=== PATIENT | male | born 1995 | race Caucasian/White ===

== ENCOUNTER 2021-07-24 07:51 | Emergency (ER) | payer SELFPAY ==
[~2021-07-24] VITALS: Ht 170.2 cm; Wt 68.1 kg
[2021-07-24 08:30] VITALS: BP 121/66
[2021-07-24] MEDS ORDERED: PENI500T PO (08:37)
--- NOTE | 2021-07-24 08:37 | PHYS DOC ---
General Adult EDM: Chief Complaint: SORE THROAT HPI: HPI: 26-year-old male presents with sore throat. He has had a sore throat for 2 days but is much worse today than yesterday. He also has had a fever of 102. He is concerned about having strep throat. He is not vaccinated against COVID-19 but he got the virus within the last 6 months and recovered. He has no other complaints this time. Review of Systems: Review of Systems: Constitutional: Fever Eyes: Denies change in visual acuity HENT: sore throat Respiratory: Denies cough or shortness of breath Cardiovascular: Denies chest pain or edema GI: Denies abdominal pain, nausea, vomiting, bloody stools or diarrhea : Denies dysuria Musculoskeletal: Denies back pain or joint pain Integument: Denies rash Neurologic: Denies headache, focal weakness or sensory changes Endocrine: Denies polyuria or polydipsia Lymphatic: Denies swollen glands Psychiatric: Denies depression or anxiety Allergies: Allergies: Allergies Coded Allergies Type Severity Reaction Last Updated Verified No Known Drug Allergies 07/24/21 No Physical Exam: PE: Constitutional: Well developed, well nourished, no acute distress, non-toxic appearance. [] HENT: Normocephalic, atraumatic, bilateral external ears normal, oropharynx moist, erythematous and enlarged tonsils without obvious exudates, nose normal. [] Eyes: PERRLA, EOMI, conjunctiva normal, no discharge. [] Neck: Normal range of motion, no tenderness, supple, no stridor. [] Cardiovascular: Heart rate regular rhythm, no murmur [] Lungs & Thorax: Bilateral breath sounds clear to auscultation [] Abdomen: Bowel sounds normal, soft, no tenderness, no masses, no pulsatile masses. [] Skin: Warm, dry, no erythema, no rash. [] Back: No tenderness, no CVA tenderness. [] Extremities: No tenderness, no cyanosis, no clubbing, ROM intact, no edema. [] Neurologic: Alert and oriented X 3, normal motor function, normal sensory function, no focal deficits noted. [] Psychologic: Affect normal, judgement normal, mood normal. [] EKG: EKG: [] Radiology/Procedures: Radiology/Procedures: [] Heart Score: C/O Chest Pain: N/A Risk Factors: Risk Factors: DM, Current or recent (<one month) smoker, HTN, HLP, family history of CAD, obesity. Risk Scores: Score 0 - 3: 2.5% MACE over next 6 weeks - Discharge Home Score 4 - 6: 20.3% MACE over next 6 weeks - Admit for Clinical Observation Score 7 - 10: 72.7% MACE over next 6 weeks - Early Invasive Strategies Course & Med Decision Making: Course & Med Decision Making Pertinent Labs and Imaging studies reviewed. (See chart for details) For his fever, the patient was given ibuprofen. He took a combination medication home that likely contains some acetaminophen. His rapid strep is positive. I will treat him with penicillin VK for 10 days. He is stable for discharge at this time. [] Reji Disclaimer: Reji Disclaimer: This electronic medical record was generated, in whole or in part, using a voice recognition dictation system. Departure Departure: Impression: Primary Impression: Strep pharyngitis Disposition: HOME / SELF CARE / HOMELESS Condition: STABLE Referrals: PCPVIRY (PCP) Patient Instructions: Strep Throat, [id number] Scripts Penicillin V Potassium (PENICILLIN V POTASSIUM) 500 Mg Tablet 1 TAB PO BID for strep throat for 10 Days, #20 TAB Prov: LONA FUENTES DO 07/24/21 LONA FUENTES DO Jul 24, 2021 08:37
== END 2021-07-24 08:47 | disposition home or self-care (01) ==
LOC: ER 07:51
DX: J02.0 Streptococcal pharyngitis (principal); Z20.822 Contact with and (suspected) exposure to COVID-19
CPT/HCPCS: 87880; 99283; C9803; U0003

== ENCOUNTER 2021-10-17 11:43 | Emergency (ER) | payer BC ==
[~2021-10-17] VITALS: Ht 177.8 cm; Wt 84.0 kg
[~2021-10-17 11:43] MED LIST: PENI500T PO
[2021-10-17 12:00] VITALS: BP 123/66
--- NOTE | 2021-10-17 12:13 | PHYS DOC ---
Past History Past Surgical History: Other Additional Past Surgical Histo: ear tubes Alcohol Use: None Adult General Chief Complaint Chief Complaint: GENERALIZED BODY ACHES HPI HPI Patient is a 26-year-old male patient presented to the ED today complaining of body aches, nasal congestion, chills, subjective fevers enlarged lymph nodes, symptoms for 3 days. He states he is not vaccinated against COVID-19. Review of Systems Review of Systems Constitutional: Reports subjective fever and body aches Eyes: Denies change in visual acuity, redness, or eye pain [] HENT: Reports enlarged lymph nodes, nasal congestion, denies sore throat [] Respiratory: Denies cough or shortness of breath [] Cardiovascular: No additional information not addressed in HPI [] GI: Denies abdominal pain, nausea, vomiting, bloody stools or diarrhea [] : Denies dysuria or hematuria [] Musculoskeletal: Denies back pain or joint pain [] Integument: Denies rash or skin lesions [] Neurologic: Denies headache, focal weakness or sensory changes [] All other systems were reviewed and found to be within normal limits, except as documented in this note. Allergies Allergies Allergies Coded Allergies Type Severity Reaction Last Updated Verified No Known Drug Allergies 07/24/21 No Physical Exam Physical Exam Constitutional: Well developed, well nourished, no acute distress, non-toxic appearance. [] HENT: Normocephalic, atraumatic, bilateral external ears normal, oropharynx moist, no oral exudates, nose normal. [] Eyes: PERRLA, EOMI, conjunctiva normal, no discharge. [] Neck: Normal range of motion, no tenderness, supple, no stridor. [] Cardiovascular:Heart rate regular rhythm, no murmur [] Lungs & Thorax: Bilateral breath sounds clear to auscultation [] Abdomen: Bowel sounds normal, soft, no tenderness, no masses, no pulsatile masses. [] Skin: Warm, dry, no erythema, no rash. [] Back: No tenderness, no CVA tenderness. [] Extremities: No tenderness, no cyanosis, no clubbing, ROM intact, no edema. [] Neurologic: Alert and oriented X 3, normal motor function, normal sensory function, no focal deficits noted. [] Psychologic: Affect normal, judgement normal, mood normal. [] Current Patient Data Vital Signs Vital Signs Date Time Temp Pulse Resp B/P (MAP) Pulse Ox O2 Delivery O2 Flow Rate FiO2 10/17/21 12:00 99.9 88 16 123/66 (85) 97 Room Air EKG EKG [] Radiology/Procedures Radiology/Procedures [] Heart Score C/O Chest Pain: N/A Risk Factors: Risk Factors: DM, Current or recent (<one month) smoker, HTN, HLP, family history of CAD, obesity. Risk Scores: Risk Factors: DM, Current or recent (<one month) smoker, HTN, HLP, family his tory of CAD, obesity. Course & Med Decision Making Course & Med Decision Making Pertinent Labs and Imaging studies reviewed. (See chart for details) This is a 26-year-old male patient presenting to the ED today with complaints of body aches, nasal congestion, chills, subjective fevers enlarged lymph nodes, symptoms for 3 days. Temperature 99.9 in the ED. Was tested for COVID-19 and influenza A&B. Results will be called to him. Instructed to quarantine himself until he gets results. Supportive care measures recommended Dragon Disclaimer Dragon Disclaimer This electronic medical record was generated, in whole or in part, using a voice recognition dictation system. Departure Departure: Impression: Primary Impression: Fever Additional Impressions: URI (upper respiratory infection) Person under investigation for COVID-19 Disposition: 01 HOME / SELF CARE / HOMELESS Condition: STABLE Referrals: PCP,NO (PCP) follow up with your doctor in 1-2 weeks Patient Instructions: Fever, Adult, [id number], Upper Respiratory Infection, Adult, [id number] Additional Instructions: You were tested for COVID-19 and influenza. We will call you when results are available. Quarantine yourself until you get results from us, rest, maintain good hand hygiene. Take Tylenol or Motrin for pain or fever. Push fluids, rest. Wear your mask around other people. Problem Qualifiers Primary Impression: Fever Fever type: unspecified Qualified Codes: R50.9 - Fever, unspecified Additional Impressions: URI (upper respiratory infection) URI type: unspecified URI Qualified Codes: J06.9 - Acute upper respiratory infection, unspecified KEENA PATRICK APRN Oct 17, 2021 12:13
[2021-10-17 12:59] LABS: INFLUENZA A PATIENT NEGATIVE (NEGATIVE); INFLUENZA B PATIENT NEGATIVE (NEGATIVE)
== END 2021-10-17 12:35 | disposition home or self-care (01) ==
LOC: ER 11:43
DX: J06.9 Acute upper respiratory infection, unspecified (principal); Z20.822 Contact with and (suspected) exposure to COVID-19
CPT/HCPCS: 87426; 87804; 99283